=== PATIENT | male | born 1995 | race African-American/Black ===

== ENCOUNTER 2018-08-23 07:25 | Emergency (ER) | payer OTHER ==
[~2018-08-23] VITALS: Ht 172.7 cm; Wt 63.5 kg
[2018-08-23] MEDS ORDERED: ULTRAM 50MG TAB50 MG PO (07:42)
[2018-08-23] MEDS ORDERED: FLEXERIL PO (07:42)
[2018-08-23 07:54] VITALS: BP 129/41
== END 2018-08-23 07:55 | disposition home or self-care (01) ==
LOC: M.ERS 07:25
DX: S39.012A Strain of muscle, fascia and tendon of lower back, initial encounter (principal); X58.XXXA Exposure to other specified factors, initial encounter; Y93.89 Activity, other specified; Y92.89 Other specified places as the place of occurrence of the external cause; Y99.8 Other external cause status